=== PATIENT | female | born 1995 | race Caucasian/White ===

== ENCOUNTER 2018-05-09 23:15 | Emergency (ER) | payer OTHER ==
[2018-05-09 23:25] VITALS: TEMP 98
[2018-05-10] MEDS ORDERED: SODIUM CHLORIDE 0.9% 1,000 ML IV ONE (00:46)
[2018-05-10 00:52] VITALS: RESP 18
[2018-05-10 01:00] LABS: Basophils % (A) 0 %; Eosinophils # (A) 0.1 k/uL (0-0.7); Eosinophils % (A) 1 %; HCT 43.1 % (34.0-46.0); HGB 14.7 gm/dL (11.4-16.0); Lymphocytes # (A) 1.3 k/uL (1.0-4.8); Lymphocytes % (A) 13 %; MCH 31.7 pg (25.0-35.0); MCHC 34.2 g/dL (31.0-37.0); MCV 92.6 fL (80.0-100.0); Mean Platelet Volume 7.3; Monocytes # (A) 0.7 k/uL (0-1.0); Monocytes % (A) 7 %; Neutrophils # (A) 8.1 k/uL (1.3-7.7); Neutrophils % (A) 79 %; Platelet Count 215 k/uL (150-450); RBC 4.65 m/uL (3.80-5.40); WBC 10.3 k/uL (3.8-10.6)
[2018-05-10 01:10] LABS: ALT 28 U/L (9-52); AST 16 U/L (14-36); Albumin 4.7 g/dL (3.5-5.0); Alkaline Phosphatase 42 U/L (38-126); Anion Gap 14 mmol/L; Blood Urea Nitrogen 13 mg/dL (7-17); Calcium 9.7 mg/dL (8.4-10.2); Carbon Dioxide 26 mmol/L (22-30); Chloride 102 mmol/L (98-107); Glucose 90 mg/dL (74-99); Partial Thromboplastin Time 22.8 sec (22.0-30.0); Prothrombin Time 10.2 sec (9.0-12.0); Sodium 142 mmol/L (137-145); Total Bilirubin 0.3 mg/dL (0.2-1.3); Total Protein 7.4 g/dL (6.3-8.2)
[2018-05-10 01:12] LABS: Appearance,Urine Clear (Clear); Bilirubin,Urine Negative (Negative); Blood,Urine Trace (Negative); Color,Urine Yellow; Glucose,Urine (UA) Negative (Negative); Ketones,Urine Negative (Negative); Leukocyte Esterase,Urine Negative (Negative); Mucus,Urine Rare /hpf; Nitrite,Urine Negative (Negative); Protein,Urine Negative (Negative); RBC,Urine 1 /hpf (0-5); Specific Gravity,Urine 1.023 (1.001-1.035); Squamous Epithelial Cell,Urine <1 /hpf (0-4); Urobilinogen,Urine <2.0 mg/dL (<2.0); WBC,Urine 1 /hpf (0-5)
--- NOTE | 2018-05-10 01:41 | US ---
EXAMINATION TYPE: Transabdominal DATE OF EXAM: 03/04/18 COMPARISON: NONE CLINICAL HISTORY: Pain. Pt states vaginal spotting x 2 days, denies bleeding EXAM PERFORMED: Transvaginal (TV) and Transabdominal (TA) EXAM MEASUREMENTS: GESTATIONAL AGE / DATING Physician Established: Not yet established Dates by LMP: (12 weeks/5 days) EDC: 11/17/2018 Dates by First Scan: No prior Dates by Current Scan for: (6 weeks/0 days) EDC: 01/03/2019 MATERNAL ANATOMY Uterus: 10.2 x 6.6 x 5.2 cm Right Ovary: 3.5 x 2.8 x 2.7 cm Left Ovary: 2.9 x 2.1 x 1.6 cm Post CDS / Adnexa: wnl Presence of free fluid: No Presence of corpus luteal cyst: Right Ovary= 1.7 x 1.6 x 1.3 cm Presence of subchorionic bleed: No GESTATION / SURVEY CRL: 0.4 cm (6 weeks/1 days) MSD: 1.6 cm (5 weeks/6 days) Yolk Sac (normal less than 6mm): 2mm Unable to detect cardiac activity at this time, ?too early vs. possible demise Date of LMP: 02/10/2018 Gestational sac is somewhat irregular. IMPRESSION: The fetus is too small to determine if there is cardiac movement. There is a small yolk sac. Yolk sac is somewhat deformed and this raises the possibility of demise. Gestational sac is also irregu lar suggestive of demise.
[2018-05-10 01:52] LABS: HCG,Quantitative Serum 24617.4 mIU/mL
--- NOTE | 2018-05-10 02:42 | ED ---
Female Urogenital HPI - General Chief complaint: Urogenital Stated complaint: Spotting-10 wks pg Time Seen by Provider: 05/10/18 00:38 Source: patient Mode of arrival: ambulatory Limitations: no limitations - History of Present Illness Initial comments: 23-year-old female patient presents the emergency department today for evaluation of light vaginal bleeding for the last 4 days. Patient states that she has had spotting of a light brown in color throughout the day today. States that she noticed it when she wipes but denies having to wear a pad. Patient states that she is having some mild upper abdominal pain but denies any suprapubic cramping or low back pain. Patient denies any fevers or chills. States that she is approximately 10 weeks . She is . Patient states that she has had 2 ultrasounds confirming intrauterine . Last was performed at 6 weeks gestation approximately 4 weeks ago. Patient states that she has not yet had her first appointment with her AIR ANALYSIS TECHNICIAN. Patient denies any hematuria, dysuria, urinary frequency, urinary urgency. She denies any nausea or vomiting. Patient denies any recent rash, shortness breath, chest pain , diarrhea, constipation, back pain, numbness, tingling, dizziness, weakness, headache, visual changes, or any other complaints. - Related Data Home Medications Medication Instructions Recorded Confirmed No Known Home Medications [No 07/01/16 07/01/16 Known Home Medications] Allergies Allergy/AdvReac Type Severity Reaction Status Date / Time benzonatate Allergy Unknown Verified 05/09/18 23:25 [From Mando Case] Review of Systems ROS Statement: Those systems with pertinent positive or pertinent negative responses have been documented in the HPI. ROS Other: All systems not noted in ROS Statement are negative. Past Medical History Past Medical History: No Reported History History of Any Multi-Drug Resistant Organisms: None Reported Past Surgical History: No Surgical Hx Reported Past Psychological History: No Psychological Hx Reported Smoking Status: Never smoker Past Alcohol Use History: None Reported Past Drug Use History: None Reported General Exam Limitations: no limitations General appearance: alert, in no apparent distress, other (This is a well- developed, well-nourished adult female patient in no acute distress. Vital signs upon presentation are temperature 98.0F, pulse 106, respirations 20, blood pressure 148/94, pulse ox 99% on room air.) Eye exam: Present: normal appearance, PERRL, EOMI. Absent: scleral icterus, conjunctival injection, periorbital swelling ENT exam: Present: normal exam, normal oropharynx, mucous membranes moist Respiratory exam: Present: normal lung sounds bilaterally. Absent: respiratory distress, wheezes, rales, rhonchi, stridor Cardiovascular Exam: Present: regular rate, normal rhythm, normal heart sounds. Absent: systolic murmur, diastolic murmur, rubs, gallop, clicks GI/Abdominal exam: Present: soft, normal bowel sounds. Absent: distended, tenderness, guarding, rebound, rigid Back exam: Present: normal inspection. Absent: CVA tenderness (R), CVA tenderness (L) Neurological exam: Present: alert, oriented X3, CN II-XII intact Psychiatric exam: Present: normal affect, normal mood Skin exam: Present: warm, dry, intact, normal color. Absent: rash Course Vital Signs 05/09/18 05/10/18 05/10/18 23:21 00:52 02:51 Temperature 98 F 98 F Pulse Rate 106 H 89 77 Respiratory 20 18 18 Rate Blood Pressure 148/94 122/72 139/79 O2 Sat by Pulse 99 97 98 Oximetry Medical Decision Making - Medical Decision Making 23-year-old female patient presents to emergency department today for evaluation of a vaginal bleeding. Patient is reportedly 10 weeks . She did have ultrasound at 6 weeks gestation confirming intrauterine . Labs reviewed today and showed a quantitative hCG at 24,617.4. ABO Rh was O+ . Did perform ultrasound this did show a gestational sac measuring approximately 6 weeks however there were irregularities in the yolk sac and the gestational sac. There is no cardiac activity found at this time. Radiologist reports that these findings suggest demise. I did discuss findings and results with the patient. We did discuss the likelihood that she is experiencing a miscarriage. We did discuss what she should expect over the next week or 2. She is instructed to follow-up with her AIR ANALYSIS TECHNICIAN as soon as possible. Return parameters discussed in detail. She verbalizes understanding and agrees with this plan. - Lab Data Result diagrams: 05/10/18 00:25 05/10/18 00:25 Lab Results 05/10/18 05/10/18 05/10/18 Range/Units 00:25 00:25 00:25 WBC 10.3 (3.8-10.6) k/uL RBC 4.65 (3.80-5.40) m/uL Hgb 14.7 (11.4-16.0) gm/dL Hct 43.1 (34.0-46.0) % MCV 92.6 (80.0-100.0) fL MCH 31.7 (25.0-35.0) pg MCHC 34.2 (31.0-37.0) g/dL RDW 12.0 (11.5-15.5) % Plt Count 215 (150-450) k/uL Neutrophils % 79 % Lymphocytes % 13 % Monocytes % 7 % Eosinophils % 1 % Basophils % 0 % Neutrophils # 8.1 H (1.3-7.7) k/uL Lymphocytes # 1.3 (1.0-4.8) k/uL Monocytes # 0.7 (0-1.0) k/uL Eosinophils # 0.1 (0-0.7) k/uL Basophils # 0.0 (0-0.2) k/uL PT (9.0-12.0) sec INR (<1.2) APTT (22.0-30.0) sec Sodium 142 (137-145) mmol/L Potassium 4.0 (3.5-5.1) mmol/L Chloride 102 (98-107) mmol/L Carbon Dioxide 26 (22-30) mmol/L Anion Gap 14 mmol/L BUN 13 (7-17) mg/dL Creatinine 0.70 (0.52-1.04) mg/dL Est GFR (CKD-EPI)AfAm >90 (>60 ml/min/1.73 sqM) Est GFR (CKD-EPI)NonAf >90 (>60 ml/min/1.73 sqM) Glucose 90 (74-99) mg/dL Calcium 9.7 (8.4-10.2) mg/dL Total Bilirubin 0.3 (0.2-1.3) mg/dL AST 16 (14-36) U/L ALT 28 (9-52) U/L Alkaline Phosphatase 42 (38-126) U/L Total Protein 7.4 (6.3-8.2) g/dL Albumin 4.7 (3.5-5.0) g/dL HCG, Quant 98070.4 mIU/mL Urine Color Urine Appearance (Clear) Urine pH (5.0-8.0) Ur Specific [place] (1.001-1.035) Urine Protein (Negative) Urine Glucose (UA) (Negative) Urine Ketones (Negative) Urine Blood (Negative) Urine Nitrite (Negative) Urine Bilirubin (Negative) Urine Urobilinogen (<2.0) mg/dL Ur Leukocyte Esterase (Negative) Urine RBC (0-5) /hpf Urine WBC (0-5) /hpf Ur Squamous Epith Cells (0-4) /hpf Urine Mucus (None) /hpf Blood Type O Positive Blood Type Recheck No 05/10/18 05/10/18 Range/Units 00:25 00:25 WBC (3.8-10.6) k/uL RBC (3.80-5.40) m/uL Hgb (11.4-16.0) gm/dL Hct (34.0-46.0) % MCV (80.0-100.0) fL MCH (25.0-35.0) pg MCHC (31.0-37.0) g/dL RDW (11.5-15.5) % Plt Count (150-450) k/uL Neutrophils % % Lymphocytes % % Monocytes % % Eosinophils % % Basophils % % Neutrophils # (1.3-7.7) k/uL Lymphocytes # (1.0-4.8) k/uL Monocytes # (0-1.0) k/uL Eosinophils # (0-0.7) k/uL Basophils # (0-0.2) k/uL PT 10.2 (9.0-12.0) sec INR 1.0 (<1.2) APTT 22.8 (22.0-30.0) sec Sodium (137-145) mmol/L Potassium (3.5-5.1) mmol/L Chloride (98-107) mmol/L Carbon Dioxide (22-30) mmol/L Anion Gap mmol/L BUN (7-17) mg/dL Creatinine (0.52-1.04) mg/dL Est GFR (CKD-EPI)AfAm (>60 ml/min/1.73 sqM) Est GFR (CKD-EPI)NonAf (>60 ml/min/1.73 sqM) Glucose (74-99) mg/dL Calcium (8.4-10.2) mg/dL Total Bilirubin (0.2-1.3) mg/dL AST (14-36) U/L ALT (9-52) U/L Alkaline Phosphatase (38-126) U/L Total Protein (6.3-8.2) g/dL Albumin (3.5-5.0) g/dL HCG, Quant mIU/mL Urine Color Yellow Urine Appearance Clear (Clear) Urine pH 6.0 (5.0-8.0) Ur Specific [place] 1.023 (1.001-1.035) Urine Protein Negative (Negative) Urine Glucose (UA) Negative (Negative) Urine Ketones Negative (Negative) Urine Blood Trace H (Negative) Urine Nitrite Negative (Negative) Urine Bilirubin Negative (Negative) Urine Urobilinogen <2.0 (<2.0) mg/dL Ur Leukocyte Esterase Negative (Negative) Urine RBC 1 (0-5) /hpf Urine WBC 1 (0-5) /hpf Ur Squamous Epith Cells <1 (0-4) /hpf Urine Mucus Rare H (None) /hpf Blood Type Blood Type Recheck - Radiology Data Radiology results: report reviewed, image reviewed ultrasound was obtained. Report was reviewed in its entirety. They're unable to detect cardiac activity at this time. Impression by Dr. Pantoja shows fetuses too small to determine if there is cardiac movement. There is a small yolk sac. Yolk sac is somewhat deformed and raises the possibility of demise. Gestational sac is also irregular suggestive of demise. Disposition Clinical Impression: Spontaneous Disposition: HOME SELF-CARE Condition: Good Instructions: Miscarriage (ED) Additional Instructions: Follow-up with your AIR ANALYSIS TECHNICIAN as soon as possible. Return here immediately for any new, worsening, or concerning symptoms. Is patient prescribed a controlled substance at d/c from ED?: No Referrals: Cody Cuellar Jr, [Primary Care Provider] - 1-2 days Time of Disposition: 02:42
[2018-05-10 02:52] VITALS: BP 139/79; PULSE 77
== END 2018-05-10 02:51 | disposition home or self-care (01) ==
LOC: EC 23:15
DX: O03.9 Complete or unspecified spontaneous abortion without complication (principal); O26.891 Other specified pregnancy related conditions, first trimester; R10.10 Upper abdominal pain, unspecified; Z3A.01 Less than 8 weeks gestation of pregnancy; Z88.8 Allergy status to other drugs, medicaments and biological substances
CPT/HCPCS: 36415; 76801; 76817; 80053; 81001; 84702; 85025; 85610; 85730; 86900; 86901; 96360; 96361; 99284

== ENCOUNTER → 2018-05-30 | Outpatient (CLI) | payer BC | END | disposition home or self-care (01) | LOC: LABWHC1 15:44 | PROVIDERS: ATTEND Obstetrics & Gynecology | DX: O03.9 Complete or unspecified spontaneous abortion without complication (principal) | CPT/HCPCS: 36415; 84702 ==

== ENCOUNTER → 2018-06-06 | Outpatient (CLI) | payer BC | END | disposition home or self-care (01) | LOC: LABWHC1 12:42 | PROVIDERS: ATTEND Obstetrics & Gynecology | DX: O03.9 Complete or unspecified spontaneous abortion without complication (principal) | CPT/HCPCS: 36415; 84702 ==

== ENCOUNTER → 2018-06-18 | Outpatient (CLI) | payer BC | END | disposition home or self-care (01) | LOC: LABWHC1 12:53 | PROVIDERS: ATTEND Obstetrics & Gynecology | DX: O03.9 Complete or unspecified spontaneous abortion without complication (principal) | CPT/HCPCS: 36415; 84702 ==

== ENCOUNTER → 2018-09-12 | Outpatient (CLI) | payer SELFPAY ==
--- NOTE | 2018-09-12 11:56 | US ---
EXAMINATION TYPE: Transabdominal DATE OF EXAM: 03/04/18 COMPARISON: NONE CLINICAL HISTORY: Z36 CONFIRM DATES. EXAM PERFORMED: Transabdominal (TA) EXAM MEASUREMENTS: GESTATIONAL AGE / DATING Physician Established: Not yet established Dates by LMP: (8 weeks/1 days) EDC: 04/23/2019 Dates by First Scan: No previous this is first scan Dates by Current Scan for: (7 weeks/6 days) EDC: 04/25/2019 MATERNAL ANATOMY Uterus: 9.5 x 4.9 x 5.8 cm Right Ovary: 2.8 x 2.1 x 2.0 cm Left Ovary: 4.2 x 3.0 x 3.5 cm Post CDS / Adnexa: wnl Presence of free fluid: No Presence of corpus luteal cyst: Cystic area left ovary measuring 2.6 x 2.0 x 2.2 cm Presence of subchorionic bleed: No GESTATION / SURVEY CRL: 1.42 cm ( 7 weeks/6 days) Yolk Sac (normal less than 6mm): 2 mm Heart Rate: 150 bpm Rhythm: Normal IUP: Viable IUP Date of LMP: 07/17/2018 Beta HcG (if available): Not available at this time Viable IUP, measurements consistent with dates. IMPRESSION: 1. Single intrauterine gestation estimated at 7 weeks 6 days gestation based on crown-rump length. Ca rdiac activity measures 150 bpm.
[2018-09-12 12:04] LABS: HCT 41.4 % (34.0-46.0); HGB 14.1 gm/dL (11.4-16.0); MCH 31.6 pg (25.0-35.0); MCV 92.8 fL (80.0-100.0); Mean Platelet Volume 7.6; Platelet Count 236 k/uL (150-450); RBC 4.46 m/uL (3.80-5.40); RDW 12.2 % (11.5-15.5); WBC 10.6 k/uL (3.8-10.6)
[2018-09-12 12:17] LABS: Glucose 85 mg/dL (74-99)
[2018-09-13 04:44] LABS: Toxoplasma Antibody (IgG) <3.0 IU/mL (<7.2); Toxoplasma Antibody (IgM) <3.0 AU/mL (<8.0)
== END ==
LOC: RADUSWWP 10:52
PROVIDERS: ATTEND Obstetrics & Gynecology
DX: Z36.9 Encounter for antenatal screening, unspecified (principal); Z34.81 Encounter for supervision of other normal pregnancy, first trimester; Z3A.01 Less than 8 weeks gestation of pregnancy
CPT/HCPCS: 36415; 76801; 82565; 82947; 85027; 86762; 86777; 86778; 86780; 86850; 86900; 86901; 87340

== ENCOUNTER 2019-03-09 18:42 | Outpatient (CLI) | payer BC, OTHER ==
[2019-03-09 19:35] LABS: Basophils % (A) 0 %; Eosinophils # (A) 0.1 k/uL (0-0.7); Eosinophils % (A) 1 %; HGB 12.1 gm/dL (11.4-16.0); Lymphocytes # (A) 1.5 k/uL (1.0-4.8); Lymphocytes % (A) 12 %; MCH 32.8 pg (25.0-35.0); MCHC 35.7 g/dL (31.0-37.0); MCV 91.8 fL (80.0-100.0); Mean Platelet Volume 8.7; Monocytes # (A) 0.5 k/uL (0-1.0); Monocytes % (A) 4 %; Neutrophils # (A) 9.6 k/uL (1.3-7.7); Neutrophils % (A) 81 %; Platelet Count 214 k/uL (150-450); RDW 13.2 % (11.5-15.5); WBC 11.8 k/uL (3.8-10.6)
[2019-03-09 19:36] LABS: ALT 22 U/L (9-52); AST 17 U/L (14-36); Blood Urea Nitrogen 10 mg/dL (7-17); LDH 420 U/L (313-618); Uric Acid 2.7 mg/dL (3.7-7.4)
[2019-03-09 19:52] LABS: Amorphous Sediment,Urine Occasional /hpf; Appearance,Urine Cloudy (Clear); Bacteria,Urine Occasional /hpf; Bilirubin,Urine Negative (Negative); Blood,Urine Negative (Negative); Color,Urine Yellow; Glucose,Urine (UA) Negative (Negative); Hyaline Casts,Urine 1 /lpf (0-2); Ketones,Urine Negative (Negative); Leukocyte Esterase,Urine Moderate (Negative); Mucus,Urine Rare /hpf; Nitrite,Urine Negative (Negative); PH, Urine 6.5 (5.0-8.0); Protein,Urine Trace (Negative); RBC,Urine 1 /hpf (0-5); Squamous Epithelial Cell,Urine 16 /hpf (0-4); Urobilinogen,Urine <2.0 mg/dL (<2.0); WBC,Urine 75 /hpf (0-5)
[2019-03-09 20:51] VITALS: BP 151/87; PULSE 91; RESP 16; TEMP 97.7
--- NOTE | 2019-03-10 07:34 | P.MSEPDOC ---
Presenting Problems - Arrival Data Date of Arrival on Unit: 03/09/19 Time of Arrival on Unit: 18:42 Mode of Transport: Ambulatory Vital Signs - Temperature Temperature: 97.7 F Temperature Source: Temporal Artery Scan - Pulse Right Brachial Pulse Rate: 91 Pulse Assessment Method: Automatic Cuff - Respirations Respiratory Rate: 16 Oxygen Delivery Method: Room Air - Blood Pressure Right Arm Blood Pressure: 151/87 Blood Pressure Mean: 108 Blood Pressure Source: Automatic Cuff Medical Screen Scoring (Post) - Cervical Exam Dilation: Exam Deferred Effacement: Exam Deferred Membranes: Intact - Uterine Contractions Frequency: N/A Duration: N/A Intensity: N/A - Maternal Vital Signs Maternal Temperature: N/A Maternal Blood Pressure: Systolic >139 = 2 Signs of Preeclampsia: N/A - Pain Assessment Pain Intensity: 0 - Maternal Trauma Maternal Trauma: N/A - Assessment Heart Rate: 140 Heart Rate - NICHD Category: Category I (Normal) = 0 NST: Reactive - Total Score Total Score (Post): 2 Physician Notification (Post) - Physician Notified Physician Notified Date: 03/09/19 Physician Notified Time: 20:17 Physician/Practitioner Notified:: Dr. Stevens Spoke With: Dr. Stevens New Order Received: No - Notification Comment Comment: Bridgett Castellanos agree with BALA Disposition - Disposition OB Disposition: Discharge to home Discharge Date: 03/09/19 Discharge Time: 20:35 I agree with the RN Medical Screening Exam: Yes Risk & Benefit of care provided described in d/c instruction: Yes Diagnosis: GESTATIONAL HTN W/O SIGNIFICANT PROTEINURIA, THIRD TRIMESTER
== END 2019-03-09 20:35 | disposition home or self-care (01) ==
LOC: FBPOP 18:42
PROVIDERS: ATTEND Obstetrics & Gynecology
DX: O13.3 Gestational [pregnancy-induced] hypertension without significant proteinuria, third trimester (principal); Z3A.00 Weeks of gestation of pregnancy not specified
CPT/HCPCS: 59025; 81001; 82565; 82570; 83615; 84156; 84450; 84460; 84520; 84550; 85025; 99215

== ENCOUNTER → 2019-03-18 | Outpatient (CLI) | payer BC, OTHER ==
[2019-03-18 15:26] LABS: HCT 38.9 % (34.0-46.0); MCH 32.3 pg (25.0-35.0); MCHC 33.5 g/dL (31.0-37.0); MCV 96.2 fL (80.0-100.0); Mean Platelet Volume 9.3; Platelet Count 214 k/uL (150-450); RBC 4.04 m/uL (3.80-5.40); RDW 13.3 % (11.5-15.5); WBC 11.6 k/uL (3.8-10.6)
[2019-03-18 16:18] LABS: Appearance,Urine Clear (Clear); Bacteria,Urine Rare /hpf; Bilirubin,Urine Negative (Negative); Blood,Urine Negative (Negative); Color,Urine Yellow; Glucose,Urine (UA) Negative (Negative); Ketones,Urine Negative (Negative); Leukocyte Esterase,Urine Negative (Negative); Mucus,Urine Occasional /hpf; Nitrite,Urine Negative (Negative); Protein,Urine 1+ (Negative); RBC,Urine 1 /hpf (0-5); Specific Gravity,Urine 1.023 (1.001-1.035); Squamous Epithelial Cell,Urine 1 /hpf (0-4); Urobilinogen,Urine <2.0 mg/dL (<2.0); WBC,Urine 1 /hpf (0-5)
[2019-03-18 23:17] LABS: Uric Acid 3.7 mg/dL (2.9-7.7)
[2019-03-19 01:38] LABS: Creatinine,Urine Random 120.3 mg/dL
[2019-03-19 01:58] LABS: Total Protein,Urine Random 39.3 mg/dL (0.0-13.5)
== END | disposition home or self-care (01) ==
LOC: LABWHC1 14:43
PROVIDERS: ATTEND Obstetrics & Gynecology
DX: O13.9 Gestational [pregnancy-induced] hypertension without significant proteinuria, unspecified trimester (principal)
CPT/HCPCS: 36415; 81001; 82565; 82570; 84156; 84450; 84460; 84520; 84550; 85027

== ENCOUNTER 2019-04-02 00:55 | Inpatient (IN) | payer BC, OTHER ==
[2019-04-02 01:28] LABS: Glucose,Whole Blood 89 mg/dL (75-99)
[2019-04-02] MEDS ORDERED: CITRIC ACID-SODIUM CITRATE 15 ML CUP PO ONE (01:34)
[2019-04-02] MEDS ORDERED: LACTATED RINGERS 1,000 ML IV ONE (01:34)
[2019-04-02] MEDS ORDERED: ceFAZolin IN SWFI 2 GM/20 ML SYRINGE IVP ONE (02:00)
[2019-04-02 02:08] VITALS: BMI 29.0
[2019-04-02 02:12] LABS: ALT 21 U/L (9-52); AST 25 U/L (14-36); Blood Urea Nitrogen 12 mg/dL (7-17); LDH 650 U/L (313-618); Uric Acid 3.9 mg/dL (3.7-7.4)
[2019-04-02 02:14] LABS: Basophils % (A) 0 %; Eosinophils % (A) 0 %; Lymphocytes # (A) 0.5 k/uL (1.0-4.8); Lymphocytes % (A) 4 %; MCH 32.3 pg (25.0-35.0); MCHC 33.3 g/dL (31.0-37.0); MCV 97.2 fL (80.0-100.0); Mean Platelet Volume 9.9; Monocytes # (A) 0.4 k/uL (0-1.0); Monocytes % (A) 3 %; Neutrophils # (A) 12.2 k/uL (1.3-7.7); Neutrophils % (A) 92 %; Platelet Count 164 k/uL (150-450); RBC 3.71 m/uL (3.80-5.40); WBC 13.3 k/uL (3.8-10.6)
[2019-04-02] MEDS: LACTATED RINGERS 1,000 ML IV SCH ×3 (02:21→21:54)
[2019-04-02 02:26] LABS: Appearance,Urine Clear (Clear); Bacteria,Urine Rare /hpf; Bilirubin,Urine Negative (Negative); Blood,Urine Negative (Negative); Color,Urine Yellow; Glucose,Urine (UA) Negative (Negative); Ketones,Urine 3+ (Negative); Leukocyte Esterase,Urine Negative (Negative); Mucus,Urine Many /hpf; Nitrite,Urine Negative (Negative); Protein,Urine 1+ (Negative); RBC,Urine 4 /hpf (0-5); Squamous Epithelial Cell,Urine 1 /hpf (0-4); Urobilinogen,Urine <2.0 mg/dL (<2.0); WBC,Urine 3 /hpf (0-5)
--- NOTE | 2019-04-02 02:35 | P.HPOB ---
History of Present Illness H&P Date: 04/02/19 Chief Complaint: Contractions This is a 24-year-old female 2 para 0 with an estimated date of confinement of 04/23/2019, estimated gestational age of 37-0/7 weeks, who presents to labor and delivery with complaints of contractions that have been occurring for the last several hours. She is a scheduled section for breech and she was scheduled for this Saturday. has been uncomplicated by gestational hypertension since approximately 29 weeks and also gestational diabetes. She has diet controlled on her diabetes. She has not taken anything for blood pressures throughout her . She denies any other symptoms such as headache, blurry vision, epigastric pain. Initial blood pressures in triage were in the 150s over 90s to 100. They have come down since arrival. labs: Random glucose-85 Hemoglobin-14.1 Hepatitis B surface antigen-negative nonreactive Rubella-immune Syphilis antibody-negative Toxoplasma-negative Blood type-O+ Antibody screen-negative Obstetrical ultrasound-normal anatomy. Choroid plexus cyst did resolve. 1 hour Glucola-150 Group B streptococcus-negative Obstetrical history: . History of 1 miscarriage. Social history: She is single. She works as a direct care provider in a correction. Review of Systems Constitutional: Denies chills, Denies fever Eyes: denies blurred vision, denies pain Ears, nose, mouth and throat: Denies headache, Denies sore throat Cardiovascular: Denies chest pain, Denies shortness of breath Respiratory: Denies cough Gastrointestinal: Reports abdominal pain (Contractions) Genitourinary: Reports pelvic pain, Reports Musculoskeletal: Reports low back pain Integumentary: Denies pruritus, Denies rash Neurological: Denies numbness, Denies weakness Psychiatric: Denies anxiety, Denies depression Past Medical History Additional Past Medical History / Comment(s): Gestational hypertension, GDM- diet controlled History of Any Multi-Drug Resistant Organisms: None Reported Past Surgical History: No Surgical Hx Reported Past Anesthesia/Blood Transfusion Reactions: No Reported Reaction Past Psychological History: No Psychological Hx Reported Smoking Status: Never smoker Past Alcohol Use History: None Reported Past Drug Use History: None Reported - Past Family History Mother Family Medical History: No Reported History Medications and Allergies Home Medications Medication Instructions Recorded Confirmed Type Pnv,Calcium 72/Iron/Folic Acid 1 each PO DAILY 04/02/19 04/02/19 History [ Plus Tablet] Allergies Allergy/AdvReac Type Severity Reaction Status Date / Time benzonatate Allergy Unknown Verified 04/02/19 01:07 [From Mando Case] Exam Osteopathic Statement: *. No significant issues noted on an osteopathic structural exam other than those noted in the History and Physical/Consult. Intake and Output 04/01/19 04/01/19 04/02/19 14:59 22:59 06:59 Other: Weight 74.389 kg HEENT: Within normal limits Heart: Regular rate and rhythm Lungs: Clear to auscultation bilaterally Abdomen: Pelvic exam: Cervix is 3 cm/50%/-2 station with buttocks palpated per nursing. heart tones: Initially minimal variability and nonreactive, however after IV hydration, she is reactive with continued minimal variability. Contractions: Every 2-7 minutes. Extremities: Negative Homans Results Result Diagrams: 04/02/19 01:56 04/02/19 01:45 Abnormal Lab Results - Last 24 Hours (Table) 04/02/19 04/02/19 Range/Units 01:45 01:56 WBC 13.3 H (3.8-10.6) k/uL RBC 3.71 L (3.80-5.40) m/uL Neutrophils # 12.2 H (1.3-7.7) k/uL Lymphocytes # 0.5 L (1.0-4.8) k/uL Creatinine 0.44 L (0.52-1.04) mg/dL Lactate Dehydrogenase 650 H (313-618) U/L Assessment and Plan (1) Gestational hypertension Current Visit: Yes Status: Acute Code(s): O13.9 - GESTATIONAL HTN W/O SIGNIFICANT PROTEINURIA, UNSP TRIMESTER SNOMED Code(s): 430743933 (2) Gestational diabetes Current Visit: Yes Status: Acute Code(s): O24.419 - GESTATIONAL DIABETES MELLITUS IN , UNSP CONTROL SNOMED Code(s): 46588688 (3) Breech presentation Current Visit: Yes Status: Acute Code(s): O32.1XX0 - MATERNAL CARE FOR BREECH PRESENTATION, UNSP SNOMED Code(s): 5407295 Plan: Admission. We'll proceed with primary section due to breech presentation in early labor. Blood pressures are currently stable but will m onitor closely. I have discussed the risks, benefits, and alternative therapies for the above-mentioned procedure and for both sedation/anesthesia as well as necessary blood products administration, if indicated, as they pertain to this patient. The patient has indicated her understanding and acceptance of the risks and procedures discussed.
[2019-04-02] MEDS ORDERED: OXYTOCIN 10 UNIT/ML 1 ML VIAL ONE (02:36)
[2019-04-02] MEDS ORDERED: KETOROLAC 30 MG/ML 1 ML VIAL ONE (02:36)
[2019-04-02] MEDS ORDERED: MORPHINE SULFATE (PF) 0.3 MG/0.3 ML SYR ONE (02:36)
[2019-04-02] MEDS ORDERED: fentaNYL (PF) 50 MCG/ML 2 ML AMP ONE (02:36)
[2019-04-02] MEDS ORDERED: NALBUPHINE 10 MG/ML (1 ML AMP) ONE (02:36)
[2019-04-02] MEDS ORDERED: ONDANSETRON 4 MG/2 ML VIAL ONE (02:36)
--- NOTE | 2019-04-02 03:24 | P.OP ---
Date of Procedure: 04/02/19 Preoperative Diagnosis: 1. Intrauterine at 37-0/7 weeks. 2. Breech presentation. 3. Active labor. 4. Gestational hypertension 5. Gestational diabetes. Postoperative Diagnosis: Same Procedure(s) Performed: Primary low transverse section Anesthesia: spinal (Duramorph) Surgeon: Collette Stevens [employer] #1: Abimbola Paul Estimated Blood Loss (ml): 400 Pathology: other (Placenta) Condition: stable Disposition: floor Indications for Procedure: This is a 24-year-old female 2 para 0 at 37-0/7 weeks who presented in active labor with breech presentation. On arrival she was found to be jazmyn irregularly but dilated to 3 cm. In addition she had elevated blood pressures in the 150s over 90s to 100 on admission. Initially her heart tones showed minimal variability and nonreactive however after IV hydration this did improve to a category 1 tracing. She had been followed by maternal- medicine for gestational hypertension and a station of diabetes. She was not on medication for either. The decision is made to proceed with primary section due to breech presentation in active labor. I have discussed the risks, benefits, and alternative therapies for the above- mentioned procedure and for both sedation/anesthesia as well as necessary blood products administration, if indicated, as they pertain to this patient. The patient has indicated her understanding and acceptance of the risks and proc edures discussed. Operative Findings: A viable female infant is noted in the francisco javier breech presentation with scores of 7 at 1 minute and 9 at 5 minutes and infant weight of 7 lbs. 1 oz. Normal uterus tubes and ovaries are noted. Description of Procedure: The patient is taken to the operating room where she is placed in the dorsal supine position with leftward tilt after spinal Duramorph anesthesia is given. She is prepped and draped in the normal sterile fashion. Skin was tested and found to be adequately anesthetized. A Pfannenstiel skin incision was made with a scalpel. A second knife was used to carry the incision down to the underlying layer of fascia. The fascia was nicked in the midline with a scalpel and then extended laterally bilaterally with Luque scissors. The anterior lip of the fascia was grasped with 2 Sadaf clamps and then dissected off the underlying rectus muscle in the midline with Luque scissors. The inferior aspect of the fascial incision was grasped with 2 Sadaf clamps and dissected off the underlying rectus muscle and the midline with Luque scissors. Next the peritoneum layer was tented up with 2 hemostats and then entered sharply with the scalpel. The incision is extended superiorly and inferiorly with Metzenbaum scissors. Next a DeLee retractor is placed. The vesicouterine peritoneum is entered sharply with Metzenbaum scissors and extended laterally bilaterally with Metzenbaum scissors and then the bladder flap is pushed inferiorly. The lower uterine segment is incised in transverse fashion with the scalpel and then bluntly entered with a hemostat. Clear fluid is noted. The incision was then extended laterally bilaterally with 2 fingers. Next the infant's buttocks is delivered through the incision, followed by the legs in a flexed position followed by the trunk, followed by the arms in a flexed position, followed by the head. Nose and mouth are bulb suctioned. Cord is clamped and cut. Infant is taken to warmer by nursing staff. Uterine fundus is gently massaged and placenta is delivered manually. Uterus is exteriorized and cleared of all clots and debris. Uterine incision is closed with 0 Vicryl suture in a running locked fashion. A second layer of 0 Vicryl suture is used in a running fashion for hemostasis. Once adequate hemostasis as assured, the vesicouterine peritoneum is reapproximated with 2-0 Vicryl suture in a running fashion. Posterior cul-de-sac is suctioned of all clots and debris. Uterus is returned to the abdomen. Incision is noted to be hemostatic. Peritoneal layer is closed with 0 Vicryl suture in a running fashion. Muscle layer is reapproximated with 0 Vicryl suture in interrupted fashion. Fascia layer is then closed with 0 PDS suture with 2 sutures meeting in the midline and the knots buried in either side and in the midline. The subcutaneous tissue was then closed with 2-0 Vicryl suture. Skin layer was then closed with rossy. All sponge and needle counts are correct. The patient is taken to recovery room in stable condition.
[2019-04-02] MEDS ORDERED: diphenhydrAMINE 50 MG/ML 1 ML VIAL IVP PRN ×2 (03:29)
[2019-04-02] MEDS ORDERED: LANOLIN CREAM 5 GM TUBE TOPICAL PRN (03:29)
[2019-04-02] MEDS ORDERED: ONDANSETRON 4 MG/2 ML VIAL IVP PRN (03:29)
[2019-04-02] MEDS ORDERED: ACETAMINOPHEN TAB 325 MG TAB PO PRN (03:29)
[2019-04-02] MEDS ORDERED: NALOXONE 0.4 MG/ML 1 ML VIAL IV PRN (03:29)
[2019-04-02] MEDS ORDERED: diphenhydrAMINE 50 MG CAP PO PRN (03:29)
[2019-04-02] MEDS ORDERED: ZOLPIDEM 5 MG TAB PO PRN (03:29)
[2019-04-02] MEDS ORDERED: diphenhydrAMINE 25 MG CAP PO PRN (03:29)
[2019-04-02] MEDS ORDERED: METOCLOPRAMIDE 5 MG/ML 2 ML VIAL IVP PRN (03:29)
[2019-04-02] MEDS ORDERED: OXYTOCIN 20 UNITS/1000 ML NS 1,000 ML IV SCH (03:29)
[2019-04-02] MEDS ORDERED: HYDROcodone/APAP 7.5-325MG 1 EACH TAB PO PRN (03:29)
[2019-04-02] MEDS: SENNOSIDES-DOCUSATE SODIUM 1 EACH TAB PO SCH ×2 (07:39→21:54)
[2019-04-02] MEDS ORDERED: LABETALOL 100 MG TAB PO PRN (12:16)
[2019-04-02] MEDS: KETOROLAC 30 MG/ML 1 ML VIAL IVP PRN ×2 (14:26→20:32)
[2019-04-03] MEDS: KETOROLAC 30 MG/ML 1 ML VIAL IVP PRN (05:56)
--- NOTE | 2019-04-03 07:04 | P.PNOBGPC ---
Subjective - Subjective Patient reports: Reports appetite normal, Reports voiding normally, Reports pain well controlled, Reports ambulating normally : doing well Objective - Vital Signs Latest vital signs: Vital Signs Temp Pulse Resp BP Pulse Ox 04/03/19 00:00 98.1 F 79 15 123/71 04/02/19 20:00 98 F 86 15 136/73 04/02/19 16:00 98.1 F 80 16 119/65 99 04/02/19 11:35 98.9 F 82 16 151/88 98 04/02/19 08:33 143/86 04/02/19 08:00 97.5 F L 103 H 16 147/98 98 Intake and Output 04/02/19 04/03/19 04/03/19 22:59 06:59 14:59 Intake Total 600 Output Total 300 Balance 300 Intake: Oral 600 Output: Urine 300 Other: # Voids 1 1 - Exam Lungs: bilateral: normal Chest: Normal S1, Normal S2 Extremities: Present: normal Abdomen: Present: normal appearance, soft. Absent: distention, tenderness Incision: Present: normal, dry, intact Uterus: Present: normal, firm Assessment and Plan Assessment: Post operative day #1. Patient is resting without new complaints. She had several mild blood pressure elevations yesterday however they are normal overnight. She has not required any antihypertensives. Incision is intact and dry she is having normal lochia. She's taking some solid food. Incision is intact and dry. Plan today is to check a CBC, encourage ambulation, allow the patient to shower, and continue routine postoperative care. (1) delivery delivered Current Visit: Yes Status: Acute Code(s): O82 - ENCOUNTER FOR DELIVERY WITHOUT INDICATION SNOMED Code(s): 813174663
[2019-04-03 07:22] LABS: Basophils % (A) 0 %; Eosinophils # (A) 0.1 k/uL (0-0.7); Eosinophils % (A) 1 %; HCT 35.7 % (34.0-46.0); Lymphocytes # (A) 0.9 k/uL (1.0-4.8); Lymphocytes % (A) 9 %; MCH 32.9 pg (25.0-35.0); MCHC 33.7 g/dL (31.0-37.0); MCV 97.6 fL (80.0-100.0); Monocytes # (A) 0.4 k/uL (0-1.0); Monocytes % (A) 4 %; Neutrophils # (A) 8.1 k/uL (1.3-7.7); Neutrophils % (A) 84 %; Platelet Count 175 k/uL (150-450); RBC 3.66 m/uL (3.80-5.40); RDW 13.5 % (11.5-15.5); WBC 9.6 k/uL (3.8-10.6)
--- NOTE | 2019-04-03 07:41 | P.PN ---
Progress Note - Text Date:04/03 Time:702am Patient is status post . Patient seen this morning with VAS score of 3. c/o mild pruritus, no c/o nausea/vomiting, comfortable and doing well.
[2019-04-03] MEDS: SENNOSIDES-DOCUSATE SODIUM 1 EACH TAB PO SCH ×2 (09:01→19:26)
[2019-04-03] MEDS: HYDROcodone/APAP 5-325MG 1 EACH TAB PO PRN ×3 (09:01→23:07)
[2019-04-03] MEDS: IBUPROFEN 600 MG TAB PO PRN ×2 (14:45→21:07)
[2019-04-03] MEDS: SIMETHICONE 80 MG CHEWABLE PO PRN (23:07)
--- NOTE | 2019-04-04 07:16 | P.PNOBGPC ---
Subjective - Subjective Patient reports: Reports appetite normal, Reports voiding normally, Reports pain well controlled, Reports ambulating normally : doing well Objective - Vital Signs Latest vital signs: Vital Signs Temp Pulse Resp BP 04/03/19 23:34 97.5 F L 87 16 148/89 04/03/19 16:00 97.5 F L 88 16 135/88 04/03/19 09:00 98.0 F 95 16 131/83 Intake and Output 04/03/19 04/04/19 04/04/19 22:59 06:59 14:59 Other: # Voids 1 1 - Exam Lungs: bilateral: normal Chest: Normal S1, Normal S2 Extremities: Present: normal Abdomen: Present: normal appearance, soft. Absent: distention, tenderness Incision: Present: normal, dry, intact Uterus: Present: normal, firm - Labs Labs: Abnormal Lab Results - Last 24 Hours (Table) 04/03/19 Range/Units 06:35 RBC 3.66 L (3.80-5.40) m/uL Neutrophils # 8.1 H (1.3-7.7) k/uL Lymphocytes # 0.9 L (1.0-4.8) k/uL Assessment and Plan Assessment: Post operative day #2. Patient is resting without new complaints. Vital signs are stable. Blood pressures are 130s to 140s over 80s. She's not required any antihypertensives. CBC yesterday was normal. Patient is ambulating, urinating, and tolerating regular food. Baby is still in special care however doing well. Plan today is to continue routine care. (1) delivery delivered Current Visit: Yes Status: Acute Code(s): O82 - ENCOUNTER FOR DELIVERY WITHOUT INDICATION SNOMED Code(s): 553451479
[2019-04-04] MEDS: HYDROcodone/APAP 5-325MG 1 EACH TAB PO PRN ×3 (07:25→19:34)
[2019-04-04] MEDS: SENNOSIDES-DOCUSATE SODIUM 1 EACH TAB PO SCH ×2 (07:25→23:38)
[2019-04-04] MEDS: SIMETHICONE 80 MG CHEWABLE PO PRN (07:26)
[2019-04-04] MEDS: IBUPROFEN 600 MG TAB PO PRN ×2 (10:26→16:58)
--- NOTE | 2019-04-05 07:13 | P.PNOBGPC ---
Subjective - Subjective Patient reports: Reports appetite normal, Reports voiding normally, Reports pain well controlled, Reports ambulating normally : doing well Objective - Vital Signs Latest vital signs: Vital Signs Temp Pulse Resp BP Pulse Ox 04/04/19 23:37 97.8 F 82 16 135/86 04/04/19 16:00 97.6 F 92 18 144/87 98 04/04/19 08:00 97.5 F L 91 18 144/91 98 Intake and Output 04/04/19 04/05/19 04/05/19 22:59 06:59 14:59 Other: # Voids 1 1 - Exam Lungs: bilateral: normal Chest: Normal S1, Normal S2 Extremities: Present: normal Abdomen: Present: normal appearance, soft. Absent: distention, tenderness Incision: Present: normal, dry, intact Uterus: Present: normal, firm Assessment and Plan Assessment: Postoperative day #3. Patient is resting without new complaints. Vital signs are stable and she is afebrile. Blood pressures remained 130s to 140s over 80s to 90s and still do not require any treatment. Patient continues to feel well. Uterus is firm nontender and her incision is intact and dry. Plan today is to continue routine care. Patient will stay today because her baby will not be going home probably in for at least 1-2 days. Anticipate discharge tomorrow (1) delivery delivered Current Visit: Yes Status: Acute Code(s): O82 - ENCOUNTER FOR DELIVERY WITHOUT INDICATION SNOMED Code(s): 008934475
[2019-04-05] MEDS: SENNOSIDES-DOCUSATE SODIUM 1 EACH TAB PO SCH (08:22)
[2019-04-05] MEDS: HYDROcodone/APAP 5-325MG 1 EACH TAB PO PRN (11:28)
[2019-04-05] MEDS: IBUPROFEN 600 MG TAB PO PRN (16:18)
[2019-04-06] MEDS: HYDROcodone/APAP 5-325MG 1 EACH TAB PO PRN ×3 (00:19→15:12)
[2019-04-06 00:27] VITALS: RESP 16
[2019-04-06] MEDS: SENNOSIDES-DOCUSATE SODIUM 1 EACH TAB PO SCH ×2 (00:31→08:30)
--- NOTE | 2019-04-06 06:15 | P.PNOBGPC ---
Subjective - Subjective Patient reports: Reports appetite normal, Reports voiding normally, Reports pain well controlled, Reports ambulating normally : doing well Objective - Vital Signs Latest vital signs: Vital Signs Temp Pulse Resp BP Pulse Ox 04/06/19 00:00 97.7 F 90 16 117/90 04/05/19 16:00 98.2 F 96 18 143/91 99 04/05/19 08:00 98.2 F 92 18 144/91 98 Intake and Output 04/05/19 04/05/19 04/06/19 14:59 22:59 06:59 Other: # Voids 1 2 1 # Bowel Movements 1 0 - Exam Lungs: bilateral: normal Chest: Normal S1, Normal S2 Extremities: Present: normal Abdomen: Present: normal appearance, soft. Absent: distention, tenderness Incision: Present: normal, dry, intact Uterus: Present: normal, firm Assessment and Plan Assessment: Postoperative day #4. Patient is resting without complaints. Vital signs are stable and she is afebrile. Blood pressures remain at a level that do not require oral medications. Plan today is to continue routine care discharge home later this morning. (1) delivery delivered Current Visit: Yes Status: Acute Code(s): O82 - ENCOUNTER FOR DELIVERY WITHOUT INDICATION SNOMED Code(s): 076109616
--- NOTE | 2019-04-06 06:24 | P.DS ---
Providers Date of admission: 04/02/19 01:31 Expected date of discharge: 04/06/19 Attending physician: Martínez Rodríguez Primary care physician: Martínez Rodríguez - Discharge Diagnosis(es) (1) delivery delivered Current Visit: Yes Status: Acute Hospital Course: Please see dictated H&P for intimate details of this patient's admission. Brief summary this pleasant 24-year-old 2 para 0 female 37 weeks gestation admitted to labor and delivery in active labor and known breech presentation. Patient also had gestational hypertension. Patient goes a primary low transverse section for viable female infant. Please see dictated delivery note. Postoperatively 4 patient's felt be stable for discharge home follow up with me in 1 week for a blood pressure check. Patient did not require any IV or oral antihypertensives. Procedures: Primary low transverse section Patient Condition at Discharge: Good Plan - Discharge Summary New Discharge Prescriptions: New Ibuprofen [Motrin] 600 mg PO Q6HR PRN #40 tab PRN Reason: Mild Pain Or Fever >= 100.5 HYDROcodone/APAP 5-325MG [[place] 5-325] 1 each PO Q4HR PRN #18 tab PRN Reason: Moderate Pain No Action Pnv,Calcium 72/Iron/Folic Acid [ Plus Tablet] 1 each PO DAILY Discharge Medication List Pnv,Calcium 72/Iron/Folic Acid [ Plus Tablet] 1 each PO DAILY 04/02/19 [History] HYDROcodone/APAP 5-325MG [[place] 5-325] 1 each PO Q4HR PRN #18 tab 04/06/19 [Rx] Ibuprofen [Motrin] 600 mg PO Q6HR PRN #40 tab 04/06/19 [Rx] Follow up Appointment(s)/Referral(s): Martínez Rodríguez MD [Primary Care Provider] - 04/15/19 8:30 am (Patient also has a visit on May 21 at 10:45 AM.) Patient Instructions/Handouts: (DC), Preeclampsia (DC) Activity/Diet/Wound Care/Special Instructions: No heavy lifting or strenuous activity for 6 weeks. Please call if any fever, chills, excessive vaginal bleeding, and/or abdominal pain. Discharge Disposition: HOME SELF-CARE
[2019-04-06 15:45] VITALS: BP 131/90; PULSE 98; TEMP 98.3
== END 2019-04-06 17:55 | disposition home or self-care (01) | DRG 788 ==
LOC: FBPOP 00:55 → 4FBP 01:31
PROVIDERS: ADMIT Obstetrics & Gynecology; ATTEND Obstetrics & Gynecology
PROC: 10D00Z1 Extraction of Products of Conception, Low, Open Approach (ICD-10-PCS; principal; 2019-04-02 02:48)
DX: O64.1XX0 Obstructed labor due to breech presentation, not applicable or unspecified (principal); O75.82 Onset (spontaneous) of labor after 37 completed weeks of gestation but before 39 completed weeks gestation, with delivery by (planned) cesarean section; O24.429 Gestational diabetes mellitus in childbirth, unspecified control; O13.4 Gestational [pregnancy-induced] hypertension without significant proteinuria, complicating childbirth; Z37.0 Single live birth; Z3A.37 37 weeks gestation of pregnancy; Z79.899 Other long term (current) drug therapy; Z88.8 Allergy status to other drugs, medicaments and biological substances
CPT/HCPCS: 59025; 81001; 82565; 83615; 84450; 84460; 84520; 84550; 85025; 86850; 86900; 86901; 88307; 99213

== ENCOUNTER → 2020-05-05 | Outpatient (CLI) | payer BC, OTHER ==
--- NOTE | 2020-05-05 10:45 | US ---
EXAMINATION TYPE: Transabdominal DATE OF EXAM: 05/05/2020 10:00 AM COMPARISON: NONE CLINICAL HISTORY: Z36 Confirm dates. confirm dates EXAM PERFORMED: Transabdominal (TA) EXAM MEASUREMENTS: GESTATIONAL AGE / DATING Physician Established: Not yet established Dates by LMP: (9 weeks/3 days) EDC: 12/05/20 Dates by First Scan: No previous this is first scan Dates by Current Scan for: (10 weeks/6 days) EDC: 11/25/20 MATERNAL ANATOMY Uterus: 12.2 x 5.3 x 7.4cm Right Ovary: 3.2 x 1.5 x 2.7cm Left Ovary: 3.8 x 2.3 x 2.4cm Post CDS / Adnexa: appears wnl Presence of free fluid: no Presence of corpus luteal cyst: complex area left ovary = 2.4 x 1.8 x 2.3cm Presence of subchorionic bleed: hypoechoic area anterior to gestational sac = 2.1 x 2.5 x 2.7cm GESTATION / SURVEY CRL: 3.9cm (10 weeks/6 days) Yolk Sac (normal less than 6mm): 0.4cm Heart Rate: 170 bpm Rhythm: Normal IUP: Live IUP Date of LMP: 02/29/20 Beta HcG (if available): Not available at this time single live IUP 10wks/6days with CINTIA of 11/25/20. Subchorionic bleed anterior to gestational sac. Cor pus luteum left ovary. IMPRESSION: 1. Single live intrauterine with a sonographic age of 10 weeks and 6 days and estimated alex e of delivery of 11/25/2020 slightly discordant with the patient's menstrual age. 2. Subchorionic hemorrhage occupying approximately 25% the gestational sac diameter measuring up to 2 .7 cm.
== END | disposition home or self-care (01) ==
LOC: RADUSWWP 09:38
PROVIDERS: ATTEND Obstetrics & Gynecology
DX: O46.8X1 Other antepartum hemorrhage, first trimester (principal); Z3A.10 10 weeks gestation of pregnancy
CPT/HCPCS: 76801

== ENCOUNTER 2020-11-22 15:31 | Outpatient (CLI) | payer BC, OTHER ==
[2020-11-22 16:09] LABS: Appearance,Urine Clear (Clear); Bacteria,Urine Rare /hpf; Bilirubin,Urine Negative (Negative); Blood,Urine Negative (Negative); Color,Urine Light Yellow; Glucose,Urine (UA) Negative (Negative); Ketones,Urine Negative (Negative); Leukocyte Esterase,Urine Small (Negative); Nitrite,Urine Negative (Negative); Protein,Urine Negative (Negative); RBC,Urine <1 /hpf (0-5); Specific Gravity,Urine 1.006 (1.001-1.035); Squamous Epithelial Cell,Urine 2 /hpf (0-4); Urobilinogen,Urine <2.0 mg/dL (<2.0); WBC,Urine <1 /hpf (0-5)
[2020-11-22 16:21] LABS: Creatinine,Urine Random 40.5 mg/dL; Protein/Creatinine Ratio,Urine 0.469
[2020-11-22 16:28] LABS: Basophils % (A) 0 %; Eosinophils % (A) 0 %; HCT 37.6 % (34.0-46.0); Lymphocytes # (A) 1.3 k/uL (1.0-4.8); Lymphocytes % (A) 13 %; MCH 32.5 pg (25.0-35.0); MCHC 34.5 g/dL (31.0-37.0); MCV 94.2 fL (80.0-100.0); Mean Platelet Volume 9.3; Monocytes # (A) 0.4 k/uL (0-1.0); Monocytes % (A) 4 %; Neutrophils # (A) 8.3 k/uL (1.3-7.7); Neutrophils % (A) 82 %; Platelet Count 186 k/uL (150-450); RBC 3.99 m/uL (3.80-5.40); RDW 13.3 % (11.5-15.5); WBC 10.2 k/uL (3.8-10.6)
[2020-11-22 16:49] LABS: ALT 13 U/L (4-34); AST 20 U/L (14-36); African American GFR (CKD) >90 (>60 ml/min/1.73 sqM); Blood Urea Nitrogen 8 mg/dL (7-17); LDH 468 U/L (313-618); Non-African American GFR(CKD) >90 (>60 ml/min/1.73 sqM)
--- NOTE | 2020-11-22 17:10 | P.PN ---
Progress Note - Text Progress Note Date: 11/22/20 Patient is a 25-year-old at 30 weeks gestation who was seen in the office and while she had normal blood pressures, did have 2+ protein on her urine. She related she had felt a little fuzzy earlier in the day and that due to same she was sent to labor and delivery for precluded workup as she did have what they suspected was preeclampsia with her last . In labor and delivery, her blood pressures of all been very good 107/62 with a last blood pressure that I visualized. Labs are done for preeclampsia and return essentially all normal values other than the protein creatinine ratio of 0.469. This is slightly above the 0.3 cut off for mild preeclampsia, her urine is actually negative. She has normal AST normal PLT and her platelets are also normal. She voices no complaints of headache/epigastric pain/visual changes. Her deep tendon reflexes are 2+ bilaterally and there is no sign of clonus. Due to the fact that she may have been making some cervical change and the blood may be contact center representative of that in the protein may be result of this blood, we have discussed options for treatment and care. I did offer to start an induction with the understanding that this may not be preeclampsia and it may be unnecessary to move forward with an induction based on normal low-pressure and she is she is asymptomatic with the difficulty in interpreting her protein creatinine ratio without protein noted in her urine. We discussed starting a 24-hour urine and allowing this to be a better definition of how much protein is in her P. And with this a decision if it is elevated to be made tomorrow to move forward with an induction if needed. We also did discuss admitting her to the hospital doing serial blood pressure checks (however all blood pressures since she's been our office and here have been normal) and monitoring or repeating the urine sample for protein later. And potentially doing an induction tomorrow. She feels like she is best served by going home and doing a 24-hour urine coming back tomorrow and if elevated will plan for delivery around that. She is scheduled for an induction on the . And if she is able to not bleed induction early, she will return on Saturday or Saturday for a nonstress test and blood pressure check in labor and delivery. She is aware to return with any heavy bleeding, contractions, headache, epigastric pain or visual changes or other signs or symptoms of preeclampsia. All questions are answered for her at this time. A reactive nonstress test is noted. He is dilated to 3 cm 70% effaced and -2 station.
--- NOTE | 2021-01-10 18:57 | P.MSEPDOC ---
Presenting Problems - Arrival Data Date of Arrival on Unit: 11/22/20 Time of Arrival on Unit: 15:31 Mode of Transport: Ambulatory Disposition - Disposition Discharge Date: 11/22/20 Discharge Time: 17:10 I agree with the RN Medical Screening Exam: Yes Case reviewed; plan agreed upon as documented in EMR&OBIX.: Yes Diagnosis: FALSE LABOR BEFORE 37 COMPLETED WEEKS OF GEST, THIRD TRI
== END 2020-11-22 17:10 | disposition home or self-care (01) ==
LOC: FBPOP 15:31
PROVIDERS: ATTEND Obstetrics & Gynecology
DX: O47.03 False labor before 37 completed weeks of gestation, third trimester (principal)
CPT/HCPCS: 59025; 81001; 82565; 82570; 83615; 84156; 84450; 84460; 84520; 84550; 85025

== ENCOUNTER 2020-11-23 15:57 | Outpatient (CLI) | payer BC, OTHER ==
[2020-11-23 18:38] LABS: Total Volume 24 Hour,Urine 1400 mls (800-1800)
[2020-11-23 18:44] LABS: Total Protein 24 Hour,Urine 224 mg/24hr (42.0-225.0)
[2020-11-23 20:30] VITALS: BP 138/93; PULSE 96; RESP 16; TEMP 97.7
--- NOTE | 2020-12-24 20:35 | P.MSEPDOC ---
Presenting Problems - Arrival Data Date of Arrival on Unit: 11/23/20 Time of Arrival on Unit: 15:57 Mode of Transport: Ambulatory - Complaint OB-Reason for Admission/Chief Complaint: Observation/Evaluation Medical History - Information : 3 Para: 1 Term: 1 : 0 Abortions: Spontaneous or Elective: 1 Number of Living Children: 1 - Gestational Age Gestational Age by CINTIA (wks/days): 39 Weeks and 5 Days Review of Systems - Review of Systems Constitutional: No problems Breast: No problems ENT: No problems Cardiovascular: No problems Respiratory: No problems Gastrointestinal: No problems Genitourinary: No problems Musculoskeletal: No problems Neurological: No problems Skin: No problems Vital Signs - Temperature Temperature: 97.7 F Temperature Source: Temporal Artery Scan - Pulse Right Pulse Rate: 96 Pulse Assessment Method: Automatic Cuff - Respirations Respiratory Rate: 16 Oxygen Delivery Method: Room Air - Blood Pressure Right Arm Blood Pressure: 138/93 Blood Pressure Mean: 108 Blood Pressure Source: Automatic Cuff Medical Screen Scoring (Pre) - Cervical Exam Dilation: Exam Deferred Effacement: Exam Deferred Membranes: Intact - Uterine Contractions Frequency: N/A Duration: N/A Intensity: N/A - Maternal Vital Signs Maternal Temperature: N/A Maternal Blood Pressure: Diastolic > 89 = 1 Signs of Preeclampsia: N/A Maternal Respirations: N/A - Maternal Trauma Maternal Trauma: N/A - Assessment - Baby A Baseline FHR: 120 Heart Rate - NICHD Category: Category I (Normal) = 0 NST: Reactive Position: N/A Station: N/A - Total Score - Baby A Total Score - Baby A: 1 - Total Score - Baby B Total Score - Baby B: 1 - Total Score - Baby C Total Score - Baby C: 1 - Level of Risk - Baby A Level of Risk - Baby A: Low (0-5) - Level of Risk - Baby B Level of Risk - Baby B: Low (0-5) - Level of Risk - Baby C Level of Risk - Baby C: Low (0-5) Physician Notification (Pre) - Physician Notified Physician Notified Date: 11/23/20 Physician Notified Time: 16:30 New Order Received: No - Notification Comment Comment: RN spoke with Dr. Hyde regarding patient's visit and follow up. Dr. Hyde wants to see pt prior to her leaving today, as well as have the results of the 24hr urine. Medical Screen Scoring (Post) - Cervical Exam Dilation: Exam Deferred Effacement: Exam Deferred Membranes: Intact - Uterine Contractions Frequency: N/A Duration: N/A Intensity: N/A - Maternal Vital Signs Maternal Temperature: N/A Maternal Blood Pressure: N/A Signs of Preeclampsia: N/A Maternal Respirations: N/A - Maternal Trauma Maternal Trauma: N/A - Assessment - Baby A Heart Rate: 125 Heart Rate - NICHD Category: Category I (Normal) = 0 NST: Reactive Position: N/A Station: N/A - Total Score Total Score - Baby A: 0 Total Score - Baby B: 0 Total Score - Baby C: 0 - Post Treatment Level of Risk Post Treatment Level of Risk - Baby A: Low (0-5) Post Treatment Level of Risk - Baby B: Low (0-5) Post Treatment Level of Risk - Baby C: Low (0-5) Physician Notification (Post) - Physician Notified Physician Notified Date: 11/23/20 Physician Notified Time: 18:32 Physician/Practitioner Notified:: Dr. Hyde Spoke With: Dr. Hyde New Order Received: Yes - Notification Comment Comment: RN spoke with Dr. Hyde, urine WNL. Pt may DC with her scheduled follow up. apt. No other orders at this time. Disposition - Disposition OB Disposition: Discharge to home Discharge Date: 11/23/20 Discharge Time: 19:15 I agree with the RN Medical Screening Exam: Yes Case reviewed; plan agreed upon as documented in [employer]MR[employer].: Yes Diagnosis: GESTATIONAL HTN W/O SIGNIFICANT PROTEINURIA, THIRD TRIMESTER
== END 2020-11-23 19:15 | disposition home or self-care (01) ==
LOC: FBPOP 15:57
PROVIDERS: ATTEND Obstetrics & Gynecology
DX: O13.3 Gestational [pregnancy-induced] hypertension without significant proteinuria, third trimester (principal); Z3A.39 39 weeks gestation of pregnancy
CPT/HCPCS: 59025; 81050; 84156; 99213

== ENCOUNTER 2020-11-24 18:25 | Outpatient (CLI) | payer BC, OTHER ==
[2020-11-24 19:18] VITALS: BP 127/80; PULSE 99; RESP 18; TEMP 96.9
--- NOTE | 2020-12-17 11:50 | P.MSEPDOC ---
Presenting Problems - Arrival Data Date of Arrival on Unit: 11/24/20 Time of Arrival on Unit: 18:30 Mode of Transport: Ambulatory - Complaint OB-Reason for Admission/Chief Complaint: PIH Medical History - Information : 3 Para: 1 Term: 1 : 0 Abortions: Spontaneous or Elective: 1 Number of Living Children: 1 - Gestational Age Gestational Age by CINTIA (wks/days): 39 Weeks and 6 Days - History Complications: Prior Comment: Hx preeclampsia Review of Systems - Review of Systems Constitutional: No problems Breast: No problems ENT: No problems Cardiovascular: No problems Respiratory: No problems Gastrointestinal: No problems Genitourinary: No problems Musculoskeletal: No problems Neurological: No problems Skin: No problems Vital Signs - Temperature Temperature: 96.9 F Temperature Source: Temporal Artery Scan - Pulse Right Sitting Brachial Pulse Rate: 99 Pulse Assessment Method: Automatic Cuff - Respirations Respiratory Rate: 18 Oxygen Delivery Method: Room Air O2 Sat by Pulse Oximetry: 97 - Blood Pressure Right Arm Sitting Blood Pressure: 127/80 Blood Pressure Mean: 95 Blood Pressure Source: Automatic Cuff Medical Screen Scoring (Pre) - Cervical Exam Dilation: 1-3 cm = 1 Effacement: More than 50% = 2 Membranes: Intact - Uterine Contractions Frequency: > or = 36 weeks =2 Duration: N/A Intensity: N/A - Maternal Vital Signs Maternal Temperature: N/A Maternal Blood Pressure: N/A Signs of Preeclampsia: N/A Maternal Respirations: N/A - Maternal Trauma Maternal Trauma: N/A - Assessment - Baby A Baseline FHR: 120 Heart Rate - NICHD Category: Category I (Normal) = 0 NST: Reactive Position: N/A Station: N/A - Total Score - Baby A Total Score - Baby A: 5 - Total Score - Baby B Total Score - Baby B: 5 - Total Score - Baby C Total Score - Baby C: 5 - Level of Risk - Baby A Level of Risk - Baby A: Low (0-5) - Level of Risk - Baby B Level of Risk - Baby B: Low (0-5) - Level of Risk - Baby C Level of Risk - Baby C: Low (0-5) Physician Notification (Pre) - Physician Notified Physician Notified Date: 11/24/20 Physician Notified Time: 19:00 New Order Received: Yes - Notification Comment Comment: Dc home. Pt scheduled for inductionof labor/ on Saturday with Dr Morrison. NST reactive, BP's reviewed/WNL. Disposition - Disposition OB Disposition: Discharge to home Discharge Date: 11/24/20 Discharge Time: 19:17 I agree with the RN Medical Screening Exam: Yes Risk & Benefit of care provided described in d/c instruction: Yes Diagnosis: PREG CARE FOR PATIENT W RECURRENT PREG LOSS, THIRD TRIMESTER
== END 2020-11-24 19:19 | disposition home or self-care (01) ==
LOC: FBPOP 18:25
PROVIDERS: ATTEND Obstetrics & Gynecology
DX: O26.23 Pregnancy care for patient with recurrent pregnancy loss, third trimester (principal); Z3A.39 39 weeks gestation of pregnancy
CPT/HCPCS: 59025; 99215

== ENCOUNTER 2020-11-26 16:34 | Inpatient (IN) | payer BC, OTHER ==
[2020-11-26] MEDS ORDERED: LIDOCAINE 0.5% (PF) 5 MG/ML (50 ML SDV) SQ PRN (17:02)
[2020-11-26] MEDS ORDERED: TERBUTALINE 1 MG/ML VIAL SQ PRN (17:02)
[2020-11-26] MEDS ORDERED: METHYLERGONOVINE 0.2 MG/ML 1 ML AMP IM PRN (17:02)
[2020-11-26] MEDS ORDERED: CARBOPROST TROMETHAMINE 250 MCG/ML 1 ML AMP IM PRN (17:02)
[2020-11-26] MEDS ORDERED: OXYTOCIN 10 UNIT/ML 1 ML VIAL IM PRN (17:02)
[2020-11-26] MEDS ORDERED: OXYTOCIN 30 UNITS/500 ML NS 30 UNIT in SALINE 1 500ML.BAG IV SCH (17:15)
[2020-11-26] MEDS: LACTATED RINGERS 1,000 ML IV SCH (17:42)
[2020-11-26 18:39] LABS: Basophils % (A) 0 %; Eosinophils # (A) 0.1 k/uL (0-0.7); Eosinophils % (A) 1 %; HCT 36.9 % (34.0-46.0); HGB 12.7 gm/dL (11.4-16.0); Lymphocytes # (A) 1.2 k/uL (1.0-4.8); Lymphocytes % (A) 14 %; MCH 32.4 pg (25.0-35.0); MCHC 34.5 g/dL (31.0-37.0); MCV 93.8 fL (80.0-100.0); Mean Platelet Volume 8.9; Monocytes # (A) 0.3 k/uL (0-1.0); Monocytes % (A) 4 %; Neutrophils # (A) 6.8 k/uL (1.3-7.7); Neutrophils % (A) 81 %; Platelet Count 169 k/uL (150-450); RBC 3.93 m/uL (3.80-5.40); RDW 13.4 % (11.5-15.5); WBC 8.4 k/uL (3.8-10.6)
[2020-11-26 18:47] LABS: INR 0.9 (<1.2); Partial Thromboplastin Time 22.9 sec (22.0-30.0); Prothrombin Time 9.6 sec (9.0-12.0)
[2020-11-26 18:48] LABS: ALT 14 U/L (4-34); AST 23 U/L (14-36); African American GFR (CKD) >90 (>60 ml/min/1.73 sqM); Blood Urea Nitrogen 11 mg/dL (7-17); LDH 428 U/L (313-618); Non-African American GFR(CKD) >90 (>60 ml/min/1.73 sqM)
[2020-11-26 19:04] LABS: Uric Acid 3.8 mg/dL (3.7-7.4)
[2020-11-27] MEDS: LACTATED RINGERS 1,000 ML IV SCH ×3 (00:31→14:44)
--- NOTE | 2020-11-27 05:14 | P.HPOB ---
History of Present Illness H&P Date: 11/26/20 Chief Complaint: Gestational hypertension 25-year-old presents at 40 weeks 1 day for NST after having some higher blood pressures earlier this week. When she came in she did have a blood pressure of 140/90 again today and so fixed the criteria of gestational hypertension. She is due and 3 cm dilated. We will move towards delivery. Risks benefits and alternatives were discussed with the patient and her and she did decide to trial of labor after section. Her cervix is 3 cm dilated, 80% effaced, -2 station. She is jazmyn irregularly. heart tones are 135 with moderate variability and reactive. Review of Systems All systems: negative Constitutional: Denies chills, Denies fever Eyes: denies blurred vision, denies pain Ears, nose, mouth and throat: Denies headache, Denies sore throat Cardiovascular: Denies chest pain, Denies shortness of breath Respiratory: Denies cough Gastrointestinal: Denies abdominal pain, Denies diarrhea, Denies nausea, Denies vomiting Genitourinary: Denies dysuria, Denies hematuria Musculoskeletal: Denies myalgias Integumentary: Denies pruritus, Denies rash Neurological: Denies numbness, Denies weakness Psychiatric: Denies anxiety, Denies depression Endocrine: Denies fatigue, Denies weight change Past Medical History Past Medical History: No Reported History Additional Past Medical History / Comment(s): Gestational hypertension, GDM- diet controlled. Obstetric history: First was a spontaneous . Second was a section at 37 weeks for gestational hyperte nsion and breech presentation. This is her third . She's had care with Dr. Rodríguez. Her blood pressures and protein started to increase this last week. GBS negative. Blood type is O+, rubella immune, RPR nonreactive, hepatitis B-, toxoplasmosis negative. History of Any Multi-Drug Resistant Organisms: None Reported Past Surgical History: Section Past Anesthesia/Blood Transfusion Reactions: No Reported Reaction Smoking Status: Never smoker - Past Family History Mother Family Medical History: No Reported History Father Family Medical History: No Reported History Medications and Allergies Home Medications Medication Instructions Recorded Confirmed Type Pnv,Calcium 72/Iron/Folic Acid 1 each PO DAILY 04/02/19 11/26/20 History [ Plus Tablet] Aspirin 1 tab PO DAILY 11/23/20 11/26/20 History Allergies Allergy/AdvReac Type Severity Reaction Status Date / Time benzonatate Allergy Unknown Verified 11/26/20 17:01 [From [facility] Case] Exam Osteopathic Statement: *. No significant issues noted on an osteopathic structural exam other than those noted in the History and Physical/Consult. Vital Signs Temp Pulse Resp BP Pulse Ox 11/26/20 18:15 98.2 F 90 18 144/99 98 11/26/20 17:12 98.2 F 90 18 144/99 98 Intake and Output 11/26/20 11/26/20 11/27/20 14:59 22:59 06:59 Intake Total 1000 Balance 1000 Intake: IV 1000 Other: # Voids 1 Weight 83.007 kg Heart: Regular rate and rhythm Lungs: Clear to auscultation bilaterally Abdomen: Soft, nontender Extremities: Negative Homans sign Results Result Diagrams: 11/26/20 18:24 11/26/20 18:24 Assessment and Plan (1) Gestational hypertension Current Visit: No Status: Acute Code(s): O13.9 - GESTATIONAL HTN W/O SIGNI FICANT PROTEINURIA, UNSP TRIMESTER SNOMED Code(s): 002716090 Plan: 1. Induction of labor with amniotomy and Pitocin 2. Anticipate normal vaginal delivery.
--- NOTE | 2020-11-27 05:26 | P.MSEPDOC ---
Presenting Problems - Arrival Data Date of Arrival on Unit: 11/26/20 Time of Arrival on Unit: 16:34 Mode of Transport: Ambulatory - Complaint OB-Reason for Admission/Chief Complaint: NST Comment: BP check Medical History - Information : 3 Para: 1 Term: 1 : 0 Abortions: Spontaneous or Elective: 1 Number of Living Children: 1 - Gestational Age Gestational Age by CINTIA (wks/days): 40 Weeks and 1 Days - History Complications: Prior Comment: HTN Review of Systems - Review of Systems Constitutional: No problems Breast: No problems ENT: No problems Cardiovascular: No problems Respiratory: No problems Gastrointestinal: No problems Genitourinary: No problems Musculoskeletal: No problems Neurological: No problems Skin: No problems Vital Signs - Temperature Temperature: 98.2 F Temperature Source: Temporal Artery Scan - Pulse Right Pulse Rate: 90 Pulse Assessment Method: Automatic Cuff - Respirations Respiratory Rate: 18 Oxygen Delivery Method: Room Air O2 Sat by Pulse Oximetry: 98 - Blood Pressure Right Arm Blood Pressure: 144/99 Blood Pressure Mean: 114 Blood Pressure Source: Automatic Cuff Medical Screen Scoring (Pre) - Cervical Exam Dilation: 1-3 cm = 1 Effacement: More than 50% = 2 Membranes: Intact - Uterine Contractions Frequency: N/A Duration: N/A Intensity: N/A - Maternal Vital Signs Maternal Temperature: N/A Maternal Blood Pressure: Systolic >139 = 2 Signs of Preeclampsia: N/A Maternal Respirations: N/A - Maternal Trauma Maternal Trauma: N/A - Assessment - Baby A Baseline FHR: 125 Heart Rate - NICHD Category: Category I (Normal) = 0 NST: Reactive Position: N/A Station: N/A - Total Score - Baby A Total Score - Baby A: 5 - Total Score - Baby B Total Score - Baby B: 5 - Total Score - Baby C Total Score - Baby C: 5 - Level of Risk - Baby A Level of Risk - Baby A: Low (0-5) - Level of Risk - Baby B Level of Risk - Baby B: Low (0-5) - Level of Risk - Baby C Level of Risk - Baby C: Low (0-5) Physician Notification (Pre) - Physician Notified Physician Notified Date: 11/26/20 Physician Notified Time: 16:55 New Order Received: Yes - Notification Comment Comment: Admit pt for IOL and check cervix. Disposition - Disposition OB Disposition: Admit I agree with the RN Medical Screening Exam: Yes Risk & Benefit of care provided described in d/c instruction: Yes Diagnosis: GESTATIONAL HTN W/O SIGNIFICANT PROTEINURIA, UNSP TRIMESTER
--- NOTE | 2020-11-27 09:01 | P.PROBDLV ---
Vaginal Delivery Note - . Vaginal Delivery Note: A 25-year-old presents at 40 weeks and 1 day for induction of labor due to gestational hypertension. Her cervix is 3 cm dilated, 80% effaced, and -2 station. She is not jazmyn. heart tones 135 with moderate variability and reactive. Patient had a with last today breech presentation and hypertension. She would like a trial of labor after and we discussed the risks, benefits and alternatives, she was reviewed these in the office with Dr. Rodríguez as well. Induction started around 5 PM and Pitocin was started. When she was uncomfortable she did get an epidural. Amniotomy was performed at 2:45 AM and thin meconium fluid was noted. Her cervix was completely dilated at 6:10 AM. Was not feeling an urge to push so she labored down until around 8:00. She pushed with just a few contractions and delivered a viable male infant over intact perineum under epidural anesthesia at 8:32 AM. Head delivered OA, nuchal cord 1 easily reduced, anterior shoulder delivered gentle downward guidance followed by posterior shoulder and rest of body. Nose and mouth bulb suctioned, cord and cut, infant placed mother's abdomen. Apgars 8, 9, weight 9 lbs. 1 oz. Placenta delivered spontaneously, intact with three-vessel cord at 8:36 AM. Vagina, cervix, and perineum were inspected. Bilateral labial and a first-degree midline laceration repaired with 3-0 Vicryl. Estimated blood loss 250 mL. Mother and baby in stable condition.
[2020-11-27] MEDS ORDERED: SIMETHICONE 80 MG CHEWABLE PO PRN (09:09)
[2020-11-27] MEDS ORDERED: ACETAMINOPHEN TAB 325 MG TAB PO PRN (09:09)
[2020-11-27] MEDS ORDERED: HYDROCORTISONE 2.5% RECTAL CREAM 30 GM TUBE RECTAL PRN (09:09)
[2020-11-27] MEDS ORDERED: diphenhydrAMINE 25 MG CAP PO PRN (09:09)
[2020-11-27] MEDS ORDERED: ZOLPIDEM 5 MG TAB PO PRN (09:09)
[2020-11-27] MEDS ORDERED: LANOLIN CREAM 5 GM TUBE TOPICAL PRN (09:09)
[2020-11-27] MEDS ORDERED: diphenhydrAMINE 50 MG/ML 1 ML VIAL IVP PRN ×2 (09:09)
[2020-11-27] MEDS ORDERED: diphenhydrAMINE 50 MG CAP PO PRN (09:09)
[2020-11-27] MEDS ORDERED: OXYTOCIN 20 UNITS/1000 ML NS 1,000 ML IV SCH (09:15)
[2020-11-27] MEDS: IBUPROFEN 600 MG TAB PO PRN (14:42)
[2020-11-27] MEDS ORDERED: ROPIVACAINE 100 MG, fentaNYL (PF) 200 MCG in SODIUM CHLORIDE 0.9% 76 ML EPIDURAL ONE (19:31)
[2020-11-27] MEDS: SENNOSIDES-DOCUSATE SODIUM 1 EACH TAB PO SCH (20:13)
[2020-11-28] MEDS: IBUPROFEN 600 MG TAB PO PRN ×2 (04:52→15:14)
--- NOTE | 2020-11-28 06:01 | P.PNOBGVD ---
Subjective - Subjective Patient reports: Reports appetite normal, Reports voiding normally, Reports pain well controlled, Reports ambulating normally : doing well Objective - Latest Vital Signs Latest vital signs: Vital Signs Temp Pulse Resp BP Pulse Ox 11/27/20 21:34 97.7 F 81 18 125/72 11/27/20 21:33 93 20 11/27/20 15:55 97.8 F 93 20 134/83 11/27/20 10:55 97.6 F 94 18 127/75 11/27/20 10:25 101 H 141/85 11/27/20 09:55 98 18 126/83 11/27/20 09:40 83 125/77 11/27/20 09:10 89 149/80 11/27/20 08:55 98.4 F 86 18 135/59 100 Intake and Output 11/27/20 11/27/20 11/28/20 14:59 22:59 06:59 Intake Total 240 Output Total 600 Balance -360 Intake: Oral 240 Output: Urine 600 Other: # Voids 1 - Exam Lungs: bilateral: normal Chest: Normal S1, Normal S2 Extremities: Present: normal Abdomen: Present: normal appearance, soft Uterus: Present: normal, firm Assessment and Plan Assessment: Post day #1. Patient is resting without complaints desires to go home. Vital signs are stable she is afebrile. Uterus is firm nontender she's having normal lochia. My impression this is a normal course. Blood pressures remain normal and therefore we'll discharge home follow up with me in 6 weeks. (1) Normal vaginal delivery Current Visit: Yes Status: Acute Code(s): O80 - ENCOUNTER FOR FULL-TERM UNCOMPLICATED DELIVERY SNOMED Code(s): 04133661
--- NOTE | 2020-11-28 06:06 | P.DS ---
Providers Date of admission: 11/26/20 17:08 Expected date of discharge: 11/28/20 Attending physician: My Hyde Primary care physician: Martínez Rodríguez - Discharge Diagnosis(es) (1) Normal vaginal delivery Current Visit: Yes Status: Acute Hospital Course: Please see dictated H&P for intimate details of this patient's admission. In brief summary this is a pleasant 25-year-old 3 para 1 female 40 evidence weeks gestation admitted to labor and delivery for gestational hypertension. Patient had a previous section desires . Patient had elevated blood pressures therefore went on to have an induction of labor for viable male , successful . Please see dictated delivery note. day 1 blood pressures remained good and patient desired to go home. Patient's felt to be stable for discharge home follow up with me in 6 weeks. Procedures: Induction of labor and normal vaginal delivery () Patient Condition at Discharge: Good Plan - Discharge Summary New Discharge Prescriptions: New Ibuprofen [Motrin] 600 mg PO Q6HR PRN #30 tab PRN Reason: Mild Pain Or Fever >= 100.5 No Action Pnv,Calcium 72/Iron/Folic Acid [ Plus Tablet] 1 each PO DAILY Aspirin 1 tab PO DAILY Discharge Medication List Pnv,Calcium 72/Iron/Folic Acid [ Plus Tablet] 1 each PO DAILY 04/02/19 [History] Aspirin 1 tab PO DAILY 11/23/20 [History] Ibuprofen [Motrin] 600 mg PO Q6HR PRN #30 tab 11/28/20 [Rx] Follow up Appointment(s)/Referral(s): Martínez Rodríguez MD [Primary Care Provider] - 6 Weeks Patient Instructions/Handouts: Vaginal Delivery (DC) Activity/Diet/Wound Care/Special Instructions: No intercourse or anything per vagina for 6 weeks. Please call if any fever, chills, excessive vaginal bleeding, and/or abdominal pain. Discharge Disposition: HOME SELF-CARE
[2020-11-28] MEDS: SENNOSIDES-DOCUSATE SODIUM 1 EACH TAB PO SCH ×2 (16:43→19:30)
[2020-11-29] MEDS: IBUPROFEN 600 MG TAB PO PRN (00:27)
--- NOTE | 2020-11-29 06:28 | P.PN ---
Progress Note - Text Progress Note Date: 11/29/20 day #2. Patient was going to go home yesterday however her baby developed some jaundice issues and therefore was kept another day. Patient continues to well without complaints. Plan today is to continue routine care and discharge home later this morning.
[2020-11-29 08:33] VITALS: BP 137/80; PULSE 99; RESP 16; TEMP 98
[2020-11-29] MEDS: SENNOSIDES-DOCUSATE SODIUM 1 EACH TAB PO SCH (08:37)
== END 2020-11-29 13:30 | disposition home or self-care (01) | DRG 807 ==
LOC: FBPOP 16:34 → 4FBP 17:08
PROVIDERS: ADMIT Obstetrics & Gynecology; ATTEND Obstetrics & Gynecology
PROC: 3E033VJ Introduction of Other Hormone into Peripheral Vein, Percutaneous Approach (ICD-10-PCS; 2020-11-26)
PROC: 10907ZC Drainage of Amniotic Fluid, Therapeutic from Products of Conception, Via Natural or Artificial Opening (ICD-10-PCS; 2020-11-26)
PROC: 00HU33Z Insertion of Infusion Device into Spinal Canal, Percutaneous Approach (ICD-10-PCS; principal; 2020-11-27)
PROC: 0HQ9XZZ Repair Perineum Skin, External Approach (ICD-10-PCS; principal; 2020-11-27)
PROC: 3E0R3BZ Introduction of Anesthetic Agent into Spinal Canal, Percutaneous Approach (ICD-10-PCS; principal; 2020-11-27)
PROC: 10E0XZZ Delivery of Products of Conception, External Approach (ICD-10-PCS; principal; 2020-11-27)
DX: O13.4 Gestational [pregnancy-induced] hypertension without significant proteinuria, complicating childbirth (principal); Z37.0 Single live birth; O34.211 Maternal care for low transverse scar from previous cesarean delivery; Z3A.40 40 weeks gestation of pregnancy; Z79.82 Long term (current) use of aspirin; Z79.899 Other long term (current) drug therapy; O69.81X0 Labor and delivery complicated by cord around neck, without compression, not applicable or unspecified; O70.0 First degree perineal laceration during delivery; Z86.32 Personal history of gestational diabetes; O77.0 Labor and delivery complicated by meconium in amniotic fluid
CPT/HCPCS: 59025; 82565; 83615; 84450; 84460; 84520; 84550; 85025; 85610; 85730; 86850; 86900; 86901; 88307; 99213

== ENCOUNTER 2020-12-05 17:11 | Emergency (ER) | payer BC, OTHER ==
[2020-12-05 17:16] VITALS: RESP 18; TEMP 98.1
[2020-12-05] MEDS ORDERED: hydrALAZINE HCL 20 MG/ML 1 ML VIAL IVP STA (18:27)
--- NOTE | 2020-12-05 18:30 | ED ---
General Adult HPI - General Chief complaint: Recheck/Abnormal Lab/Rx Stated complaint: High BP Time Seen by Provider: 12/05/20 17:15 Source: patient, RN notes reviewed, old records reviewed Mode of arrival: ambulatory Limitations: no limitations - History of Present Illness Initial comments: This is a 25-year-old female presents emergency Department 8 days . Patient states she went home and started having headaches she took her blood pressure and is been elevated from about systolic 1:30 to 160 and diastolic rate around the 100 she states. Patient also is noted a little bit of blurred vision. Patient states currently she is not filling the bed but earlier headache was more significant. Patient denies any abdominal pain patient denies nausea or vomiting. Patient denies any shortness of breath. Patient denies any edema to her legs or any calf tenderness. Patient denies any lightheadedness or dizziness. Patient denies any chest pain palpitations. Patient denies any recent fever or chills. - Related Data Home Medications Medication Instructions Recorded Confirmed Pnv,Calcium 72/Iron/Folic Acid 1 each PO DAILY 04/02/19 11/26/20 [ Plus Tablet] Aspirin 1 tab PO DAILY 11/23/20 11/26/20 Previous Rx's Medication Instructions Recorded Ibuprofen [Motrin] 600 mg PO Q6HR PRN #30 tab 11/28/20 Allergies Allergy/AdvReac Type Severity Reaction Status Date / Time benzonatate Allergy Unknown Verified 12/05/20 17:16 [From [facility] Case] Review of Systems ROS Statement: Those systems with pertinent positive or pertinent negative responses have been documented in the HPI. ROS Other: All systems not noted in ROS Statement are negative. Past Medical History Past Medical History: No Reported History Additional Past Medical History / Comment(s): Gestational hypertension, GDM- diet controlled. Obstetric history: First was a spontaneous . Second was a section at 37 weeks for gestational hypertension and breech presentation. This is her third . She's had care with Dr. Rodríguez. Her blood pressures and protein started to increase this last week. GBS negative. Blood type is O+, rubella immune, RPR nonreactive, hepatitis B-, toxoplasmosis negative. History of Any Multi-Drug Resistant Organisms: None Reported Past Surgical History: Section Past Anesthesia/Blood Transfusion Reactions: No Reported Reaction Past Psychological History: No Psychological Hx Reported Smoking Status: Never smoker Past Alcohol Use History: None Reported Past Drug Use History: None Reported - Past Family History Mother Family Medical History: No Reported History Father Family Medical History: No Reported History General Exam - General Exam Comments Initial Comments: GENERAL: Patient is well-developed and well-nourished. Patient is nontoxic and well- hydrated and is in mild distress. ENT: Neck is soft and supple. No significant lymphadenopathy is noted. Oropharynx is clear. Moist mucous membranes. Neck has full range of motion without eliciting any pain. EYES: The sclera were anicteric and conjunctiva were pink and moist. Extraocular movements were intact and pupils were equal round and reactive to light. Eyelids were unremarkable. PULMONARY: Unlabored respirations. Good breath sounds bilaterally. No audible rales rhonchi or wheezing was noted. CARDIOVASCULAR: There is a regular rate and rhythm without any murmurs gallops or rubs. ABDOMEN: Soft and nontender with normal bowel sounds. SKIN: Skin is clear with no lesions or rashes and otherwise unremarkable. NEUROLOGIC: Patient is alert and oriented x3. Cranial nerves II through XII are grossly intact. Motor and sensory are also intact. Normal speech, volume and content. Symmetrical smile. MUSCULOSKELETAL: Normal extremities with adequate strength and full range of motion. No lower extremity swelling or edema. No calf tenderness. LYMPHATICS: No significant lymphadenopathy is noted PSYCHIATRIC: Normal psychiatric evaluation. Limitations: no limitations Course Vital Signs 12/05/20 12/05/20 17:12 19:14 Temperature 98.1 F Pulse Rate 108 H 96 Respiratory 18 18 Rate Blood Pressure 156/87 144/87 O2 Sat by Pulse 99 99 Oximetry Medical Decision Making - Medical Decision Making I spoke with Dr. Simms he was in agreement with giving the patient some hydralazine and waiting for labs prior to giving any Magnesium. Patient did seem fairly comfortable at this time. EKG shows sinus tachycardia at 103 bpm DE interval 234 QRS is 86 QT interval 350 QTC is 458. Patient's EKG shows no ST segment elevation or depression. Patient's blood pressure came down to 135/87 after 10 of hydralazine. After all the left labs came back I spoke with Dr. Simms and the patient was in no way appearing toxic she had no edema. Dr. Martini wanted the patient to follow-up with Dr. Castillo tomorrow. I informed the patient of this she agreed - Lab Data Result diagrams: 12/05/20 19:02 12/05/20 19:02 Lab Results 12/05/20 12/05/20 12/05/20 Range/Units 19:02 19:02 19:02 WBC 9.3 (3.8-10.6) k/uL RBC 3.58 L (3.80-5.40) m/uL Hgb 10.8 L (11.4-16.0) gm/dL Hct 33.3 L (34.0-46.0) % MCV 92.9 (80.0-100.0) fL MCH 30.1 (25.0-35.0) pg MCHC 32.4 (31.0-37.0) g/dL RDW 13.3 (11.5-15.5) % Plt Count 398 D (150-450) k/uL MPV 7.5 Neutrophils % 76 % Lymphocytes % 18 % Monocytes % 4 % Eosinophils % 1 % Basophils % 0 % Neutrophils # 7.0 (1.3-7.7) k/uL Lymphocytes # 1.7 (1.0-4.8) k/uL Monocytes # 0.3 (0-1.0) k/uL Eosinophils # 0.1 (0-0.7) k/uL Basophils # 0.0 (0-0.2) k/uL Sodium 140 (137-145) mmol/L Potassium 4.2 (3.5-5.1) mmol/L Chloride 105 (98-107) mmol/L Carbon Dioxide 27 (22-30) mmol/L Anion Gap 8 mmol/L BUN 19 H (7-17) mg/dL Creatinine 0.64 (0.52-1.04) mg/dL Est GFR (CKD-EPI)AfAm >90 (>60 ml/min/1.73 sqM) Est GFR (CKD-EPI)NonAf >90 (>60 ml/min/1.73 sqM) Glucose 92 (74-99) mg/dL Uric Acid 3.3 L (3.7-7.4) mg/dL Calcium 9.1 (8.4-10.2) mg/dL Total Bilirubin 0.4 (0.2-1.3) mg/dL AST 22 (14-36) U/L ALT 19 (4-34) U/L Alkaline Phosphatase 110 (38-126) U/L Lactate Dehydrogenase 690 H (313-618) U/L Total Protein 7.3 (6.3-8.2) g/dL Albumin 4.0 (3.5-5.0) g/dL Urine Color Yellow Urine Appearance Cloudy H (Clear) Urine pH 6.0 (5.0-8.0) Ur Specific Ada 1.017 (1.001-1.035) Urine Protein 1+ H (Negative) Urine Glucose (UA) Negative (Negative) Urine Ketones Negative (Negative) Urine Blood Large H (Negative) Urine Nitrite Negative (Negative) Urine Bilirubin Negative (Negative) Urine Urobilinogen <2.0 (<2.0) mg/dL Ur Leukocyte Esterase Large H (Negative) Urine RBC >182 H (0-5) /hpf Urine WBC 90 H (0-5) /hpf Ur Squamous Epith Cells <1 (0-4) /hpf Urine Bacteria Rare H (None) /hpf Urine Mucus Rare H (None) /hpf Urine Yeast (Budding) Rare H (None) /hpf Disposition Clinical Impression: Hypertension Disposition: HOME SELF-CARE Condition: Good Instructions (If sedation given, give patient instructions): Hypertension (ED) Additional Instructions: Patient is to follow-up with Dr. Castillo more morning. Patient is to return to the emergency department she has a severe headache shortness of breath or significant edema. Patient is also return to the emergency department if her blood pressure is systolic greater than 160 or diastolic greater than 105. Is patient prescribed a controlled substance at d/c from ED?: No Referrals: None,Stated [Primary Care Provider] - 1-2 days Time of Disposition: 20:33
[2020-12-05] MEDS ORDERED: ACETAMINOPHEN TAB 500 MG TAB PO STA (18:41)
[2020-12-05 19:22] LABS: Basophils % (A) 0 %; Eosinophils # (A) 0.1 k/uL (0-0.7); Eosinophils % (A) 1 %; HCT 33.3 % (34.0-46.0); HGB 10.8 gm/dL (11.4-16.0); Lymphocytes # (A) 1.7 k/uL (1.0-4.8); Lymphocytes % (A) 18 %; MCH 30.1 pg (25.0-35.0); MCHC 32.4 g/dL (31.0-37.0); MCV 92.9 fL (80.0-100.0); Mean Platelet Volume 7.5; Monocytes # (A) 0.3 k/uL (0-1.0); Monocytes % (A) 4 %; Neutrophils % (A) 76 %; RBC 3.58 m/uL (3.80-5.40); RDW 13.3 % (11.5-15.5); WBC 9.3 k/uL (3.8-10.6)
[2020-12-05 19:26] LABS: Platelet Count 398 k/uL (150-450)
[2020-12-05 19:29] LABS: Appearance,Urine Cloudy (Clear); Bacteria,Urine Rare /hpf; Bilirubin,Urine Negative (Negative); Blood,Urine Large (Negative); Budding Yeast,Urine Rare /hpf; Color,Urine Yellow; Glucose,Urine (UA) Negative (Negative); Ketones,Urine Negative (Negative); Leukocyte Esterase,Urine Large (Negative); Mucus,Urine Rare /hpf; Nitrite,Urine Negative (Negative); Protein,Urine 1+ (Negative); RBC,Urine >182 /hpf (0-5); Specific Gravity,Urine 1.017 (1.001-1.035); Squamous Epithelial Cell,Urine <1 /hpf (0-4); Urobilinogen,Urine <2.0 mg/dL (<2.0); WBC,Urine 90 /hpf (0-5)
[2020-12-05 19:30] LABS: ALT 19 U/L (4-34); AST 22 U/L (14-36); African American GFR (CKD) >90 (>60 ml/min/1.73 sqM); Alkaline Phosphatase 110 U/L (38-126); Anion Gap 8 mmol/L; Blood Urea Nitrogen 19 mg/dL (7-17); Calcium 9.1 mg/dL (8.4-10.2); Carbon Dioxide 27 mmol/L (22-30); Chloride 105 mmol/L (98-107); Glucose 92 mg/dL (74-99); LDH 690 U/L (313-618); Non-African American GFR(CKD) >90 (>60 ml/min/1.73 sqM); Potassium 4.2 mmol/L (3.5-5.1); Sodium 140 mmol/L (137-145); Total Bilirubin 0.4 mg/dL (0.2-1.3); Total Protein 7.3 g/dL (6.3-8.2); Uric Acid 3.3 mg/dL (3.7-7.4)
[2020-12-05 20:45] VITALS: BP 132/88; PULSE 106
== END 2020-12-05 20:48 | disposition home or self-care (01) ==
LOC: EC 17:11
DX: I10 Essential (primary) hypertension (principal); Z88.8 Allergy status to other drugs, medicaments and biological substances
CPT/HCPCS: 36415; 93005; 80053; 83615; 84550; 85025; 81001; 87086; 99284; 96372; J0360